=== PATIENT | male | born 1985 | race Caucasian/White ===

== ENCOUNTER 2017-05-03 19:57 | Emergency (ER) | payer BC ==
[~2017-05-03] VITALS: Ht 188 cm; Wt 81.6 kg
[2017-05-03 20:12] VITALS: BP_SYST 118
--- NOTE | 2017-05-03 20:16 | NUR ---
Patient triaged and placed in waiting room. VSS and patient appears in no acute distress at this time. Accompanied by self, awaiting available bed, and MD notified of need for MSE.
--- NOTE | 2017-05-03 21:07 | NUR ---
PT AMBULATORY TO ER CHAIR 1 FOR EVALUATION
--- NOTE | 2017-05-03 21:08 | NUR ---
Patient arrived to ED a/o x 4 with c/o right ankle pain s/p basketball injury. Patient reports landing on ankle wrong while jumping. Presents with moderate swelling to right ankle. Per patient, "I want to make sure that it is not broken". CMS present distal to extremity. /10 pain.
[2017-05-03 21:15] VITALS: BP_SYST 124
[2017-05-03] MEDS ORDERED: IBUPROFEN 800 MG TABLET PO ONE (21:15)
--- NOTE | 2017-05-03 21:15 | NUR ---
Patient given written and verbal discharge instructions and verbalizes understanding. ER MD discussed with patient the results and treatment provided. Patient in stable condition. ID arm band removed. Rx of Motrin given. Patient educated on pain management and to follow up with PMD. Pain Scale 3/10 tolerable for patient. Opportunity for questions provided and answered.
== END 2017-05-03 21:15 | disposition home or self-care (01) ==
LOC: SED 19:57
DX: S93.402A Sprain of unspecified ligament of left ankle, initial encounter (principal); X58.XXXA Exposure to other specified factors, initial encounter; Y93.67 Activity, basketball; Y92.320 Baseball field as the place of occurrence of the external cause; Y99.8 Other external cause status
CPT/HCPCS: 99284